=== PATIENT | female | born 1960 ===

== ENCOUNTER 2022-01-31 22:12 | Emergency (ER) | payer SELFPAY ==
[~2022-01-31] VITALS: Ht 165.1 cm; Wt 70.0 kg
[2022-01-31 22:21] VITALS: BP 120/64
== END 2022-02-01 08:12 | disposition left against medical advice (07) ==
LOC: ER 22:13
DX: R51.9 Headache, unspecified (principal); Z53.21 Procedure and treatment not carried out due to patient leaving prior to being seen by health care provider